=== PATIENT | female | born 2000 | race Caucasian/White ===

== ENCOUNTER 2021-01-21 05:40 | Emergency (ER) | payer OTHER ==
[~2021-01-21] VITALS: Ht 167.6 cm; Wt 56.7 kg
[2021-01-21] MEDS ORDERED: INSULIN LI100 UNIT/1 SUBQ (06:37)
[2021-01-21] MEDS ORDERED: ZOLOFT100 MG PO (06:38)
[2021-01-21] MEDS ORDERED: LANTUS SUBQ (06:38)
[2021-01-21] MEDS ORDERED: ACETAMINOPHEN-1 EAC2 PO (06:56)
[2021-01-21] MEDS ORDERED: IBUPROFEN 600600 M1 PO (06:56)
[2021-01-21 07:11] VITALS: BP 115/72
== END 2021-01-21 07:12 | disposition home or self-care (01) ==
LOC: M.ERS 05:40
DX: S80.02XA Contusion of left knee, initial encounter (principal); W17.89XA Other fall from one level to another, initial encounter; Y93.89 Activity, other specified; Y92.89 Other specified places as the place of occurrence of the external cause; Y99.8 Other external cause status